=== PATIENT | male | born 1975 ===

== ENCOUNTER 2017-04-07 02:08 | Emergency (ER) | payer SELFPAY ==
[2017-04-07 02:36] VITALS: TEMP 97
--- NOTE | 2017-04-07 04:45 | C.PDOC ---
History Of Present Illness 42 year old male brought in by EMS after [place] Patient is responsive and admits to drinking tonight; denies physical complaints at this time. Time Seen by Provider: 04/07/17 02:36 Chief Complaint (Nursing): Substance Abuse History Per: Patient History/Exam Limitations: no limitations Onset/Duration Of Symptoms: Hrs Current Symptoms Are (Timing): Still Present Suicide/Self Injury Attempted (Context): None Modifying Factor(s): Alcohol Associated Symptoms: denies: Depression, Suicidal Thoughts, Suicidal Plan Involuntary Hold By: None Recent travel outside of the [place]: No Past Medical History Reviewed: Historical Data, Nursing Documentation, Vital Signs Vital Signs: Last Vital Signs Temp 97 F L 04/07/17 02:33 Pulse 84 04/07/17 02:33 Resp 12 04/07/17 02:33 BP 130/70 04/07/17 02:33 Pulse Ox 96 04/07/17 04:51 - Medical History PMH: No Chronic Diseases Surgical History: No Surg Hx Family History: States: Unknown Family Hx - Social History Hx Alcohol Use: Yes Hx Substance Use: No - Immunization History Hx Tetanus Toxoid Vaccination: No Hx Influenza Vaccination: No Hx Pneumococcal Vaccination: No Review Of Systems Constitutional: Negative for: Fever, Chills Gastrointestinal: Negative for: Nausea, Vomiting, Diarrhea Physical Exam - Physical Exam Appears: Non-toxic, No Acute Distress, Other (ETOH on breath. Not fully oriented to place and time. No trauma noted.) Skin: Normal Color, Warm, Dry Head: Atraumatic, Normacephalic Eye(s): bilateral: Normal Inspection, EOMI Oral Mucosa: Moist Chest: Symmetrical, No Tenderness Cardiovascular: Rhythm Regular Respiratory: Normal Breath Sounds, No Rales, No Rhonchi, No Wheezing Gastrointestinal/Abdominal: Soft, No Tenderness Extremity: Normal ROM (x4) Neurological/Psych: Other (alert but not oriented to time and place) Gait: Unable To Assess ED Course And Treatment O2 Sat by Pulse Oximetry: 96 (Room air) Pulse Ox Interpretation: Normal Progress Note: 0645- Pt is awake, AAO x 3 requesting to leave. Pt is fully ambulatory with steady gait as observed by me to restroom- states he leaves in [place] and will take a cab home. Reevaluation Time: 06:50 Reassessment Condition: Improved Disposition Counseled Patient/Family Regarding: Diagnosis, Need For Followup, Rx Given - Disposition Disposition: HOME/ ROUTINE Disposition Time: 06:57 Condition: STABLE Additional Instructions: Return to ER if worse Forms: [facility] (Micronesian) - Clinical Impression Clinical Impression: Alcohol abuse - Scribe Statement The provider has reviewed the documentation as recorded by the Scribe Gavin Orr All medical record entries made by the Matthewibgonzalez were at my direction and personally dictated by me. I have reviewed the chart and agree that the record accurately reflects my personal performance of the history, physical exam, medical decision making, and the department course for this patient. I have also personally directed, reviewed, and agree with the discharge instructions and disposition.
[2017-04-07 07:10] VITALS: BP 138/76; PULSE 76; RESP 18; O2SAT 97
== END 2017-04-07 07:10 | disposition home or self-care (01) ==
LOC: C.ER 02:08
DX: F10.10 Alcohol abuse, uncomplicated (principal); Y90.9 Presence of alcohol in blood, level not specified